=== PATIENT | female | born 1980 | race Hispanic/Latino ===

== ENCOUNTER 2020-10-28 05:49 | Inpatient (IN) | payer BC ==
[2020-10-28 06:22] LABS: Absolute Lymphocytes (CBC) 1.7 K/uL (0.7-4.9); Basophils % 1.4 % (0-1.3); Hematocrit 40.2 % (36.0-45.0); Lymphocytes % 21.1 % (15.3-44.8); MPV 9.2 fL (7.6-11.3); RBC Red Blood Cell Count 4.39 M/uL (3.86-4.86)
[2020-10-28 06:49] LABS: ALT/SGPT 26 U/L (12-78); AST/SGOT 17 U/L (15-37); Albumin 3.8 g/dL (3.4-5.0); Alkaline Phosphatase 70 U/L (45-117); BUN Blood Urea Nitrogen 12 mg/dL (7-18); Bicarbonate 23 mmol/L (21-32); Bilirubin Direct 0.1 mg/dL (0-0.2); Bilirubin Total 0.5 mg/dL (0.2-1.0); Glucose Level 99 mg/dL (74-106); Lipase 115 U/L (73-393); Potassium 3.8 mmol/L (3.5-5.1); Protein, Total 7.9 g/dL (6.4-8.2); Sodium Level 140 mmol/L (136-145)
[2020-10-28 07:35] LABS: Urine Bacteria LOADED /HPF (<20)
--- NOTE | 2020-10-28 08:23 | RAD REPORT ---
EXAM DESCRIPTION: US - Abdomen Exam Limited - 10/28/2020 6:56 am CLINICAL HISTORY: ABD PAIN COMPARISON: No comparisons FINDINGS: The gallbladder demonstrates no gallstones. No pericholecystic fluid or gallbladder wall t hickening. The common bile duct is mildly prominent measuring 7 mm. The liver demonstrates no findings of intrahepatic biliary dilatation. IMPRESSION: No gallstones are visualized. Upper limit of normal common bile duct measuring 7 mm. MR CP could be obtained for further evaluation of the biliary tree if clinically indicated.
--- NOTE | 2020-10-28 08:49 | RAD REPORT ---
EXAM DESCRIPTION: CTAbdomen Pelvis W Contrast - 10/28/2020 8:19 am CLINICAL HISTORY: Abdominal pain. ABD PAIN COMPARISON: No comparisons TECHNIQUE: Biphasic CT imaging of the abdomen and pelvis was performed with 100 ml non-ionic IV cont rast. All CT scans are performed using dose optimization technique as appropriate and may include automated exposure control or mA/KV adjustment according to patient size. FINDINGS: Linear opacities in the left lung base laterally suggest atelectasis. The liver, spleen, pancreas, adrenal glands and kidneys are within normal limits. 5 cm area of inflamed fat is seen in the right upper quadrant region suggesting an omental infarction . No bowel obstruction, free air, free fluid or abscess. The appendix is normal. No evidence of signi ficant lymphadenopathy. No suspicious bony findings. IMPRESSION: 5 cm area of inflamed fat in the right upper quadrant may represent omental infarction. Suggest followup CT abdomen in 3-6 months for surveillance purposes.
[2020-10-28] MEDS ORDERED: MORPHINE 4 MG/ML SYR ONE ×2 (08:51→11:37)
[2020-10-28] MEDS ORDERED: CEFTRIAXONE/SWI 1gm 1 GM/10 ML SYR ONE (08:52)
--- NOTE | 2020-10-28 09:10 | EDPHYS ---
Physician Documentation [facility] Name: Debby Davenport Age: 40 yrs Sex: Female : 1980 Arrival Date: 10/28/2020 Time: 05:49 Bed 6 Private MD: ED Physician Jere Thomas HPI: 10/28 06:38 This 40 yrs old Female presents to ER via Wheelchair with complaints of rn Abdominal Pain. 06:38 The patient presents with abdominal pain in the right upper quadrant. rn 07:12 Onset: The symptoms/episode began/occurred yesterday. The symptoms do not radiate. rn Associated signs and symptoms: Pertinent positives: diarrhea, Pertinent negatives: shortness of breath, vaginal discharge, vomiting. The symptoms are described as achy, crampy. Modifying factors: The symptoms are alleviated by nothing, the symptoms are aggravated by touching the area. Severity of pain: At its worst the pain was moderate in the emergency department the pain is unchanged. The patient has not experienced similar symptoms in the past. 07:13 The patient has not recently seen a physician. rn ADMITTING OFFICER: 06:07 LMP 10/28/2020 ea Historical: - Allergies: 06:05 Cipro; ea - PMHx: 06:05 None; ea - PSHx: 06:05 None; ea - Immunization history:: Adult Immunizations up to date. - Social history:: Smoking status: Patient denies any tobacco usage or history of. - Family history:: not pertinent. - Hospitalizations: : No recent hospitalization is reported. ROS: 07:13 Constitutional: Negative for fever, chills, and weight loss, Eyes: Negative for injury, rn pain, redness, and discharge, Neck: Negative for injury, pain, and swelling, Cardiovascular: Negative for chest pain, palpitations, and edema, Respiratory: Negative for shortness of breath, cough, wheezing, and pleuritic chest pain, Abdomen/GI: + right sided abd pain and diarrhea Back: Negative for injury and pain, : Negative for injury, bleeding, discharge, and swelling, MS/Extremity: Negative for injury and deformity, Skin: Negative for injury, rash, and discoloration, Neuro: Negative for headache, weakness, numbness, tingling, and seizure. Exam: 07:13 Constitutional: Overweight patient, holding right side of abdomen Head/Face: rn Normocephalic, atraumatic. Eyes: Periorbital areas with no swelling, redness, or edema. Cardiovascular: Regular rate and rhythm. No pulse deficits. Respiratory: No increased work of breathing, no retractions or nasal flaring. Abdomen/GI: soft, + RUQ and RLQ tenderness, no rebound Skin: Warm, dry with normal turgor. Normal color with no rashes, no lesions, and no evidence of cellulitis. MS/ Extremity: Pulses equal, no cyanosis. Neurovascular intact. Full, normal range of motion. Equal circumference. Neuro: Awake and alert, GCS 15 10:49 ECG was reviewed by the Attending Physician. [facility] Vital Signs: 06:01 BP 135 / 87; Pulse 76; Resp 18; Temp 98.7; Pulse Ox 97% on R/A; Weight 99.79 kg; Height ea 5 ft. 6 in. (167.64 cm); Pain 10/10; 08:40 BP 142 / 100; Pulse 74; Resp 20; Pulse Ox 97% on R/A; Pain 8/10; hb 10:00 BP 138 / 98; Pulse 67; Resp 20; Pulse Ox 97% ; sv 11:30 BP 134 / 88; Pulse 68; Resp 15; Pulse Ox 99% on R/A; hb 13:00 BP 136 / 87; Pulse 66; Resp 16; Temp 97.9; Pulse Ox 100% on R/A; hb 06:01 Body Mass Index 35.51 (99.79 kg, 167.64 cm) ea MDM: 06:32 Patient medically screened. rn 09:04 Differential diagnosis: bowel obstruction, cholecystitis, Cholelithiasis, Hepatitis, real myocardia ischemia or infarction, non-specific abd pain, pancreatitis, Perf. Gastric Ulcer, Peritonitis, Pyelonephritis, urinary tract infection. Data reviewed: vital signs, nurses notes, lab test result(s), radiologic studies. 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 Test interpretation: by ED physician or midlevel provider: ECG, plain radiologic studies. Counseling: I had a detailed discussion with the patient and/or guardian regarding: the historical points, exam findings, and any diagnostic results supporting the discharge/admit diagnosis, lab results, radiology results, the need for further work-up and treatment in the hospital. 10/28 06:10 Order name: Basic Metabolic Panel 10/28 06:10 Order name: CBC with Diff 10/28 06:10 Order name: Hepatic Function 10/28 06:10 Order name: Lipase 10/28 06:11 Order name: Basic Metabolic Panel; Complete Time: 07:17 EDOR 10/28 06:11 Order name: CBC with Automated Diff; Complete Time: 06:38 EDOR 10/28 06:11 Order name: Liver (Hepatic) Function; Complete Time: 07:17 EDOR 10/28 06:11 Order name: Lipase; Complete Time: 07:17 [facility] 10/28 06:38 Order name: Urine Microscopic Only 10/28 06:39 Order name: Urine Microscopic Only; Complete Time: 08:15 [facility] 10/28 06:59 Order name: Urine Dipstick--Ancillary (enter results); Complete Time: 10:45 ds4 10/28 07:36 Order name: Urine Culture [facility] 10/28 06:10 Order name: IV Saline Lock; Complete Time: 06:10 10/28 06:10 Order name: Labs collected and sent; Complete Time: 06:10 10/28 06:38 Order name: CT Abd/Pelvis - IV Contrast Only; Complete Time: 10:45 rn 10/28 06:38 Order name: Urine Test (obtain specimen); Complete Time: 06:56 10/28 06:40 Order name: US Abdomen Limited; Complete Time: 08:34 10/28 08:33 Order name: SARS-COV-2 RT PCR; Complete Time: 08:34 [facility] 10/28 09:06 Order name: EKG; Complete Time: 09:07 [facility] 10/28 09:06 Order name: Troponin (emerg Dept Use Only); Complete Time: 10:45 real 10/28 12:52 Order name: MRI [facility] 10/28 13:29 Order name: Urine --Ancillary (enter results) 10/28 13:38 Order name: Urine --Ancillary [facility] 10/28 06:38 Order name: Urine Dipstick-Ancillary (obtain specimen); Complete Time: 06:56 rn 10/28 09:06 Order name: EKG - Nurse/Tech; Complete Time: 10:57 [facility] EC:49 Rate is 69 beats/min. Rhythm is regular. QRS [place] is Normal. MI interval is normal. QRS real interval is normal. QT interval is normal. No Q waves. T waves are Normal. No ST changes noted. Clinical impression: Normal ECG and No evidence of ischemia. Interpreted by me. Reviewed by me. Administered Medications: 08:39 Drug: morphine 4 mg Route: IVP; Site: left forearm; hb 09:00 Follow up: Response: No adverse reaction hb 08:39 Drug: Rocephin - (cefTRIAXone) 1 grams Route: IVPB; Infused Over: 30 mins; Site: left hb forearm; 08:40 Follow up: IV Status: Completed infusion; IV Intake: 10ml hb 09:10 Follow up: Response: No adverse reaction hb 09:17 Drug: Flagyl 500 mg Volume: 100 ml; Route: IVPB; Rate: 200 ml/hr; Infused Over: 30 sr5 mins; Site: left antecubital; 09:50 Follow up: Response: No adverse reaction; IV Status: Completed infusion; IV Intake: hb 200ml 11:24 Drug: morphine 4 mg Route: IVP; Site: left antecubital; hb 12:05 Follow up: Response: No adverse reaction hb 11:58 Drug: Benadryl (diphenhydrAMINE) 25 mg Route: IVP; Site: left forearm; ss 12:35 Follow up: Response: No adverse reaction hb Disposition: 10/28/20 09:09 Hospitalization ordered by Diego Dove for Inpatient Admission. Preliminary diagnosis are Abdominal tenderness, Acute vascular disorders of intestine - omental infarction. - Bed requested for Telemetry/MedSurg (Inpatient). - Status is Inpatient Admission. hb - Condition is Stable. - Problem is new. - Symptoms have improved. Signatures: Dispatcher [employer] EDMS Bernarda Ledesma Corey, MD MD cha Nieto, Roman, MD MD rn Smirch, Shelby, RN RN ss Baxter, Heather, RN RN Sami Gruber RN RN sr5 Glenys Sanchez RN RN ea Corrections: (The following items were deleted from the chart) 07:36 06:55 Urine Dipstick-Ancillary ordered. EDMS EDMS 07:36 07:17 Urine Dipstick-Ancillary reviewed. rn EDMS 07:47 06:42 CORONAVIRUS+MR.LAB.BRZ ordered. EDMS EDMS 12:18 09:09 Hospitalization Ordered by Diego Dove DO for Inpatient Admission. Preliminary bd diagnosis is Abdominal tenderness; Acute vascular disorders of intestine - omental infarction. Bed requested for Telemetry/MedSurg (Inpatient). Status is Inpatient Admission. Condition is Stable. Problem is new. Symptoms have improved. real 13:55 12:18 10/28/2020 09:09 Hospitalization Ordered by Diego Dove DO for Inpatient hb Admission. Preliminary diagnosis is Abdominal tenderness; Acute vascular disorders of intestine - omental infarction. Bed requested for Telemetry/MedSurg (Inpatient). Status is Inpatient Admission. Condition is Stable. Problem is new. Symptoms have improved. bd
--- NOTE | 2020-10-28 09:10 | ER ---
Nurse's Notes [facility] Name: Debby Davenport Age: 40 yrs Sex: Female : 1980 Arrival Date: 10/28/2020 Time: 05:49 Bed 6 Private MD: Diagnosis: Abdominal tenderness;Acute vascular disorders of intestine-omental infarction Presentation: 10/28 06:01 Chief complaint: Patient states: Reports pain that started yesterday morning, pt ea reports she has been having diarrhea and nausea. Coronavirus screen: At this time, the client does not indicate any symptoms associated with coronavirus-19. Ebola Screen: No symptoms or risks identified at this time. Initial Sepsis Screen: Does the patient meet any 2 criteria? No. Patient's initial sepsis screen is negative. Does the patient have a suspected source of infection? No. Patient's initial sepsis screen is negative. Risk Assessment: Do you want to hurt yourself or someone else? Patient reports no desire to harm self or others. Onset of symptoms. 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 - Social history:: Smoking status: Patient denies any tobacco usage or history of. - Family history:: not pertinent. - Hospitalizations: : No recent hospitalization is reported. Screenin:04 Abuse screen: Denies threats or abuse. Nutritional screening: No deficits noted. ea Tuberculosis screening: No symptoms or risk factors identified. Fall Risk None identified. Assessment: 06:06 General: Appears in no apparent distress. Behavior is calm, cooperative, appropriate ea for age. Pain: Complains of pain in right upper quadrant. Neuro: Level of Consciousness is awake, alert, obeys commands, Oriented to person, place, time. Cardiovascular: Patient's skin is warm and dry. Respiratory: Airway is patent Respiratory effort is even, unlabored, Respiratory pattern is regular, symmetrical. GI: Abdomen is non-distended. Derm: Skin is pink, warm \T\ dry. 06:51 Reassessment: Ultrasound at bedside. ea 08:40 Reassessment: Patient appears in no apparent distress at this time. Patient and/or hb family updated on plan of care and expected duration. Pain level reassessed. Patient is alert, oriented x 3, equal unlabored respirations, skin warm/dry/pink. 09:30 Reassessment: Patient appears in no apparent distress at this time. hb 10:30 Reassessment: Patient appears in no apparent distress at this time. Patient and/or hb family updated on plan of care and expected duration. Pain level reassessed. Patient is alert, oriented x 3, equal unlabored respirations, skin warm/dry/pink. 11:25 Reassessment: Pt c/o pain /. Dr. Thomas notified repeat morphine administered as hb ordered. 11:58 Reassessment: localized redness and whelps with reported mild itching to IV site after ss morphine administration. verbal order for Benadryl 25 mg IVP given by Dr. Thomas and has been administered. Pt denies SOB. No edema noted. Pt to MRI now via wheelchair. 13:00 Reassessment: Patient appears in no apparent distress at this time. Patient and/or hb family updated on plan of care and expected duration. Pain level reassessed. Patient is alert, oriented x 3, equal unlabored respirations, skin warm/dry/pink. 13:54 Reassessment: Patient appears in no apparent distress at this time. Patient and/or hb family updated on plan of care and expected duration. Pain level reassessed. Patient is alert, oriented x 3, equal unlabored respirations, skin warm/dry/pink. Vital Signs: 06:01 BP 135 / 87; Pulse 76; Resp 18; Temp 98.7; Pulse Ox 97% on R/A; Weight 99.79 kg; Height ea 5 ft. 6 in. (167.64 cm); Pain 10/10; 08:40 BP 142 / 100; Pulse 74; Resp 20; Pulse Ox 97% on R/A; Pain 8/10; hb 10:00 BP 138 / 98; Pulse 67; Resp 20; Pulse Ox 97% ; sv 11:30 BP 134 / 88; Pulse 68; Resp 15; Pulse Ox 99% on R/A; hb 13:00 BP 136 / 87; Pulse 66; Resp 16; Temp 97.9; Pulse Ox 100% on R/A; hb 06:01 Body Mass Index 35.51 (99.79 kg, 167.64 cm) ea ED Course: 05:49 Patient arrived in ED. ag3 06:03 Triage completed. ea 06:04 Patient has correct armband on for positive identification. Bed in low position. Call ea light in reach. Side rails up X2. 06:04 Arm band placed on right wrist. Patient placed in an exam room, on a stretcher, on ea pulse oximetry. 06:05 Inserted saline lock: 22 gauge in right antecubital area, using aseptic technique. ds4 Blood collected. 06:19 Basic Metabolic Panel Sent. ds4 06:19 CBC with Diff Sent. ds4 06:19 Hepatic Function Sent. ds4 06:20 Lipase Sent. ds4 06:20 CBC with Automated Diff Sent. ds4 06:20 Basic Metabolic Panel Sent. ds4 06:20 Lipase Sent. ds4 06:20 Liver (Hepatic) Function Sent. ds4 06:32 Go Tristan MD is Attending Physician. rn 06:56 US Abdomen Limited In Process Unspecified. EDMS 07:23 Attending Physician role handed off by Go Tristan MD real 07:23 Jere Thomas MD is Attending Physician. real 08:19 CT Abd/Pelvis - IV Contrast Only In Process Unspecified. EDMS 08:20 Charla Prabhakar, MECHE is Primary Nurse. hb 08:40 Urine Microscopic Only Sent. hb 09:07 Diego Dove DO is Hospitalizing Provider. real 13:54 No provider procedures requiring assistance completed. Patient admitted, IV remains in hb place. Administered Medications: 08:39 Drug: morphine 4 mg Route: IVP; Site: left forearm; hb 09:00 Follow up: Response: No adverse reaction hb 08:39 Drug: Rocephin - (cefTRIAXone) 1 grams Route: IVPB; Infused Over: 30 mins; Site: left hb forearm; 08:40 Follow up: IV Status: Completed infusion; IV Intake: 10ml hb 09:10 Follow up: Response: No adverse reaction hb 09:17 Drug: Flagyl 500 mg Volume: 100 ml; Route: IVPB; Rate: 200 ml/hr; Infused Over: 30 sr5 mins; Site: left antecubital; 09:50 Follow up: Response: No adverse reaction; IV Status: Completed infusion; IV Intake: hb 200ml 11:24 Drug: morphine 4 mg Route: IVP; Site: left antecubital; hb 12:05 Follow up: Response: No adverse reaction hb 11:58 Drug: Benadryl (diphenhydrAMINE) 25 mg Route: IVP; Site: left forearm; ss 12:35 Follow up: Response: No adverse reaction hb Intake: 08:40 IV: 10ml; Total: 10ml. hb 09:50 IV: 200ml; Total: 210ml. hb Outcome: 09:09 Decision to Hospitalize by Provider. real 13:54 Admitted to OR accompanied by nurse, via wheelchair, room OR, then to 220. hb 13:54 Condition: stable 13:54 Instructed on the need for admit, Demonstrated understanding of instructions. 13:55 Patient left the ED. hb Signatures: Dispatcher [employer] Bonnie Deluca, RN Jere Ceja MD MD cha Nieto, Roman, MD MD rn Smirch, Shelby, RN RN ss Swanson, Donovan ds4 Charla Prabhakar RN RN Sami Ruiz, RN RN sr5 Glenys Sanchez, RN Corina Peterson ea ag3
[2020-10-28 09:20] LABS: Urine Blood 3+ (Negative); Urine Glucose NEGATIVE (Negative); Urine Protein 1+ (Negative); Urine Specific Gravity >1.030 (1.005-1.030)
[2020-10-28] MEDS ORDERED: METRONIDAZOLE 500mg IVPB 500 MG/100 ML BAG IV ONE (09:23)
--- NOTE | 2020-10-28 10:56 | P.HP ---
Certification for Inpatient Patient admitted to: Observation With expected LOS: <2 Midnights Patient will require the following post-hospital care: None Practitioner: I am a practitioner with admitting privileges, knowledge of patient current condition, hospital course, and medical plan of care. Services: Services provided to patient in accordance with Admission requirements found in Title 42 Section 412.3 of the Code of Federal Regulations Patient History Date of Service: 10/28/20 Primary Care Provider: none Reason for admission: Right upper quadrant abdominal pain History of Present Illness: 40-year-old female presented to the emergency room with right upper quadrant abdominal pain. This started yesterday morning. She rated the pain about a 10 out of 10. It was worse with movement. Better when she was at rest. It was associated with some nausea no vomiting noted. She denies any diarrhea, constipation. She denies any fever, chills or significant shortness of breath. Pain persisted. She came to the ER for further evaluation. In the ER, blood pressure stable. White count 8.0. Hemoglobin 13.5. Sodium 140, potassium 3.8. Creatinine 0.71 with a GFR greater than 90. Glucose 99. Urinalysis shows evidence of UTI. CT scan showed 5 mm inflamed fat in the right upper quadrant likely representing omental infarction. Abdominal ultrasound showed no gallstones. Common bile duct was upper limits of normal at 7 mm. The patient was given medication for pain. Patient admitted for further evaluation and treatment. 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 Psychosocial/ Personal History: Patient - Family History Family History: Reviewed- Non-Contributory - Social History Smoking Status: Light Tobacco smoker (1-9 cigarettes/day) Counseled patient to stop smoking for: less than 10 minutes Smoking therapy provided: Yes Patient receptive to therapy: Yes Alcohol use: Yes CD- Drugs: Yes Caffeine use: Yes Place of Residence: Home Review of Systems General: As per HPI Eyes: Unremarkable ENT: Unremarkable Respiratory: Unremarkable Cardiovascular: Unremarkable Gastrointestinal: Nausea, Abdominal Pain, As per HPI Genitourinary: Unremarkable Musculoskeletal: Unremarkable Integumentary: Unremarkable Neurological: Unremarkable Lymphatics: Unremarkable Physical Examination - Physical Exam General: Alert, In no apparent distress, Oriented x3, Cooperative HEENT: Atraumatic, Normocephalic, Other (Dry mucous membranes) Neck: Supple Respiratory: Clear to auscultation bilaterally, Normal air movement Cardiovascular: Normal pulses, Regular rate/rhythm Gastrointestinal: Normal bowel sounds, Soft and benign, Non-distended, No masses, No rebound, No guarding, Tenderness (Pain to the right upper quadrant noted. Abdominal striae noted ) Integumentary: No tenderness/swelling, No erythema, No warmth, No cyanosis Neurological: Normal speech, Normal strength at 5/5 x4 extr, Normal tone, Normal affect - Studies Laboratory Data (last 24 hrs) 10/28/20 06:12: WBC 8.00, Hgb 13.5, Hct 40.2, Plt Count 299 10/28/20 06:12: Sodium 140, Potassium 3.8, BUN 12, Creatinine 0.71, Glucose 99, Total Bilirubin 0.5, AST 17, ALT 26, Alkaline Phosphatase 70, Lipase 115 Assessment and Plan - Plan Impression: Right upper quadrant abdominal pain with nausea secondary to omental infarction UTI GERD Tobacco abuse Plan: Right upper quadrant abdominal pain with nausea secondary to omental infarction: Patient will be admitted for further evaluation and treatment. Case discussed with surgery. We will start IV antibiotic therapy, pain control, and IV fluids. We will keep the patient n.p.o. at this time. We will also order MRCP to rule out common bile duct dysfunction or abnormality. Anticipate improvement. If this persist patient may require surgical intervention. Await recommendations from surgery. Anticipate improvement over the next 48 hours. UTI: We will start IV antibiotic therapy. Await urine and blood culture. GERD: GERD suspected. Will start Protonix. Tobacco abuse: We will provide nicotine patch if needed. Tobacco cessation addressed in detail. Discharge Plan: Home Plan to discharge in: 48 Hours - Advance Directives Does patient have a Living Will: No Does patient have a Durable POA for Healthcare: No - Code Status/Comfort Care Code Status Assessed: Yes (full code) Time Spent Managing Pts Care (In Minutes): 55
[2020-10-28] MEDS ORDERED: DIPHENHYDRAMINE 50 MG/ML VIAL ONE (12:11)
--- NOTE | 2020-10-28 12:52 | RAD REPORT ---
EXAM DESCRIPTION: MRI - Cholangiogram - 10/28/2020 12:21 pm CLINICAL HISTORY: RUQ pain Abdominal pain COMPARISON: Abdomen Pelvis W Contrast dated 10/28/2020; Abdomen Exam Limited dated 10/28/2020 FINDINGS: Three-dimensional MRCP was performed using maximum intensity projection reconstruction on the same work station. No intrahepatic biliary tree dilatation is seen. The common bile duct is normal caliber without evide nce of retained stone, stricture or mass. The pancreatic duct is not pathologically dilated. The gallbladder is unremarkable. Limited T2 sequences through the abdomen demonstrates no bulky adenopathy, significant free fluid or abscess. IMPRESSION: Negative MR cholangiogram.
[2020-10-28] MEDS ORDERED: FENTANYL CITR 100 MCG/2 ML ONE (14:14)
[2020-10-28] MEDS ORDERED: propofoL 200 MG/20 ML VIAL IV ONE (14:15)
[2020-10-28] MEDS ORDERED: MIDAZOLAM HCL 2 MG/2 ML INJ ONE (14:15)
[2020-10-28] MEDS ORDERED: ROCURONIUM 50 MG/5 ML VIAL IV ONE (14:15)
[2020-10-28] MEDS ORDERED: dexAMETHasone 10 MG/ML VIAL ONE (14:15)
[2020-10-28] MEDS ORDERED: LIDOCAINE 2% MPF 5 ML VIAL ONE (14:15)
[2020-10-28] MEDS ORDERED: ONDANSETRON 4 MG/2 ML VIAL ONE (14:17)
[2020-10-28] MEDS ORDERED: Ringers Lactate 1,000 ML IV ONE ×2 (14:19→15:26)
--- NOTE | 2020-10-28 14:20 | PREOPCON ---
Date of Consultation: 10/28/2020 Chief Complaint: Right upper quadrant abdominal pain. History Of Present Illness: The patient is a 40-year-old female, who awoke yesterday morning with ri ght upper quadrant abdominal pain persisted all day long with associated with nausea, but no vomiting and pain is not associated with eating. No diarrhea or constipation. No blood in her stool. No dy suria or hematuria. No sore throat, runny nose, cough, headaches, or dizziness. No chest pain. She has never had pain like this. Review of Systems: Otherwise unremarkable. Past Medical History: Negative. Past Surgical History: Right hand surgery. Allergies: NO ALLERGIES. Social History: The patient does smoke and drinks occasionally. Family History: Significant for kidney disease, diabetes. Physical Examination: Vital Signs: Stable. She is afebrile. General: She is awake, alert, and oriented x3. Head and Neck: Cranial nerves 2 through 12 are grossly within normal limits. No neck masses. No JV D. Throat clear. Neck is supple. Chest: Clear. Heart: S1, S2. Abdomen: Soft, nondistended. Positive bowel sounds. Positive right upper quadrant tenderness with minimal rebound. No rigidity or guarding. Extremities: Adequately perfused. Nontender. Neuro: Nonfocal. Laboratory Data: White count is within normal limits. Electrolytes reviewed, essentially within nor mal limits. CT of the abdomen and ultrasound reviewed. She has a 5 cm infarcted omentum in the righ t upper quadrant. Also, she has a dilated common bile duct at 7 mm and recommendation is to get an M SHRINKING MACHINE OPERATOR to rule out any common bile duct pathology. Assessment: Right upper quadrant abdominal pain likely secondary to infarcted omentum. Recommendations: Await MRCP. If negative, we will proceed with diagnostic resection of th e infarcted omentum. The patient understands risks, benefits, and alternatives and agrees to proceed . /MODL Voice ID: [id number] Report ID: [id number]
[2020-10-28] MEDS ORDERED: CEFOXITIN/SWI 1gm 1 GM/10 ML SYR ONE (14:30)
[2020-10-28] MEDS ORDERED: EPHEDRINE SULF 50 MG/ML VIAL ONE (15:05)
[2020-10-28] MEDS ORDERED: GLYCOPYRROLATE 0.2 MG/ML SYR ONE (15:17)
--- NOTE | 2020-10-28 15:17 | P.OP ---
Scheduling Assistant: Abril CAMP Preoperative diagnosis: Abdominal Pain, Infarcted Omentum Postoperative diagnosis: Same, Endometriosis Primary procedure: Diag Lap, Partial Omentectomy, Biopsy Peritoneal Nodule Anesthesia: General Estimated blood loss: min Specimen: Omentum, Peritoneal Nodule Findings: as above Complications: None Transferred to: Recovery Room Condition: Good
[2020-10-28] MEDS ORDERED: SODIUM CHLORIDE 0.9% 10ML INJ IV PRN (15:21)
[2020-10-28] MEDS ORDERED: ACETAMINOPHEN 500 MG TAB PO PRN (15:21)
[2020-10-28] MEDS: PANTOPRAZOLE 40 MG INJ IVP SCH (15:21)
[2020-10-28] MEDS ORDERED: ONDANSETRON 4 MG/2 ML VIAL IV PRN (15:21)
[2020-10-28] MEDS: NA CHLORIDE 0.9% 1,000 ML IV SCH ×2 (15:21→19:58)
[2020-10-28] MEDS ORDERED: ACETAMINOPHEN 650MG/RECT SUPP PR PRN (15:21)
[2020-10-28] MEDS ORDERED: NEOSTIGMINE 1 MG/ML -5 ML ONE (15:22)
[2020-10-28] MEDS ORDERED: KETOROLAC 30 MG/ML INJ ONE (15:25)
[2020-10-28] MEDS: HYDROMORPHONE HCL 1 MG/ML INJ ONE ×2 (15:30→15:35)
[2020-10-28] MEDS: HYDROMORPHONE HCL 2 MG/ML inj ONE ×2 (15:55→16:01)
[2020-10-28] MEDS: NICOTINE 21 MG/PAT TD SCH (16:00)
--- NOTE | 2020-10-28 17:41 | OP ---
Date of Procedure: 10/28/2020 Surgeon: Parish Schilling MD Hydroelectric Operator: CONRADO Felipe. Preoperative Diagnosis: Abdominal pain and infarcted omentum. Postoperative Diagnosis: Abdominal pain and infarcted omentum with peritoneal nodule consistent with endometriosis. Procedures Performed: Diagnostic laparoscopy, partial omentectomy, and biopsy of peritoneal nodule. Estimated Blood Loss: Minimal. Specimen: Infarcted omentum and peritoneal nodule. Findings: As above. Anesthesia: General. Complications: None. Disposition: The patient tolerated the procedure in stable condition and taken to Recovery in good g eneral condition. Procedure In Detail: The patient was brought to the OR and placed in supine position. General began . The patient was prepped and draped in the usual sterile fashion. Marcaine 0.5% was infiltrated lo sudheer. A 15-blade was used to make a 1 cm supraumbilical midline incision. Subcutaneous tissue was divided. Fascia was identified and divided. #1 Vicryl stay suture was placed. Peritoneal cavity wa s entered with sharp and blunt dissection. A 12 mm trocar was placed into the peritoneal cavity unde r direct vision. Pneumoperitoneum was established. A 5 trocar was placed in the epigastrium just to the right of midline and 1 in the right mid abdomen. Laparoscopy revealed infarcted omentum in the right upper quadrant with attachment to the peritoneal surface, which was taken down with blunt disse ction. Approximately a 2-inch portion of the omentum was then excised with LigaSure. Bleeding was e asily controlled. This was retrieved through the umbilicus via an EndoCatch bag. Then, a diagnostic laparoscopy revealed peritoneal nodules in the left upper quadrant and the diaphragm where the heart is and on the right upper quadrant near where the omentum was and in the right pelvic region. These were black nodules consistent with most likely endometriosis. A cautery was used to cauterize the a kim around the right upper quadrant nodule and the nodule was biopsied in the standard fashion and se nt to Pathology as specimen. That area was examined and bleeding was controlled with cautery. Subse quently, there was no other evidence of significant disease identified and then all trocars were rajesh shasha under direct vision. Stay sutures were tied to each other across the fascial defect. Subcutaneo us wounds were irrigated. Bleeding was controlled with cautery and 3-0 chromic used to approximate t he subcutaneous tissue and close the skin. Sterile dressing was applied. The patient was awakened a nd taken to Recovery in good general condition. /MODL Voice ID: [id number] Report ID: [id number]
[2020-10-28 17:53] VITALS: BMI 35.5
[2020-10-28] MEDS ORDERED: CEFOXITIN SODIUM 1 GM/VIAL IVPB SCH (18:00)
[2020-10-28] MEDS: HYDROMORPHONE HCL 1 MG/ML INJ IV PRN (19:57)
[2020-10-28 20:10] LABS: Urine Appearance CLOUDY (Clear); Urine Blood 3+ (Negative); Urine Glucose NEGATIVE (Negative); Urine Protein 1+ (Negative); Urine Specific Gravity >=1.030 (1.005-1.030); Urine Urobilinogen 0.2 mg/dL (0.2-1.0); Urine pH 5.5 (5.0-7.0)
[2020-10-28 20:49] LABS: Urine Color YELLOW (Yellow); Urine Microscopic Reflex ORDER UMIC
[2020-10-28] MEDS ORDERED: CEFOXITIN SODIUM 1 GM/VIAL ONE ×2 (20:55→20:56)
[2020-10-28 21:05] LABS: Urine Bilirubin NEGATIVE (Negataive)
[2020-10-28] MEDS: CEFOXITIN/SWI 1gm 1 GM/10 ML SYR IVP SCH (21:09)
[2020-10-28 21:11] LABS: Urine Bacteria 20-50 /HPF (<20); Urine Mucus 1+ /HPF (NONE SEEN)
[2020-10-29] MEDS: HYDROMORPHONE HCL 1 MG/ML INJ IV PRN ×3 (00:26→12:43)
[2020-10-29] MEDS: CEFOXITIN/SWI 1gm 1 GM/10 ML SYR IVP SCH ×2 (00:27→05:24)
[2020-10-29] MEDS: NA CHLORIDE 0.9% 1,000 ML IV SCH ×2 (01:00→05:33)
[2020-10-29] MEDS: HYDROCODONE/APAP 7.5/325 MG TAB PO PRN ×2 (05:33→10:53)
[2020-10-29 06:29] LABS: Absolute Lymphocytes (CBC) 0.9 K/uL (0.7-4.9); Basophils % 0.3 % (0-1.3); Hematocrit 36.3 % (36.0-45.0); Lymphocytes % 6.3 % (15.3-44.8); MPV 9.4 fL (7.6-11.3); RBC Red Blood Cell Count 3.96 M/uL (3.86-4.86)
[2020-10-29 06:41] LABS: Magnesium 1.8 mg/dL (1.8-2.4); Phosphorus 2.5 mg/dL (2.5-4.9); Potassium 4.1 mmol/L (3.5-5.1); Thyroid Stimulating Hormone 0.15 uIU/mL (0.360-3.740)
--- NOTE | 2020-10-29 06:53 | EKG ---
Test Date: 2020-10-28 Test Time: 10:58:08 [place] Laborer: MICHELLE MEASUREMENT RESULTS: Intervals: Rate: 66 DE: 154 QRSD: 78 QT: 434 QTc: 454 [place]: P: 51 DE: 154 QRS: 19 T: 35 INTERPRETIVE STATEMENTS: Normal sinus rhythm Normal ECG No previous ECG available for comparison Electronically Signed On 10-29-20 06:51:36 CDT by Kevin Rubin
[2020-10-29] MEDS: PANTOPRAZOLE 40 MG INJ IVP SCH (08:04)
--- NOTE | 2020-10-29 08:35 | P.DS ---
Admission Date: 10/28/20 Discharge Date: 10/29/20 Primary Care Provider: none Disposition: ROUTINE DISCHARGE Discharge Condition: GOOD Reason for Admission: Right upper quadrant abdominal pain Consultations: Surgery-Dr. Stone Procedures: COVID: Negative ABUS: COMPARISON: No comparisons FINDINGS: The gallbladder demonstrates no gallstones. No pericholecystic fluid or gallbladder wall thickening. The common bile duct is mildly prominent measuring 7 mm. The liver demonstrates no findings of intrahepatic biliary dilatation. IMPRESSION: No gallstones are visualized. Upper limit of normal common bile duct measuring 7 mm. MRCP could be obtained for further evaluation of the biliary tree if clinically indicated. MRCP: COMPARISON: Abdomen Pelvis W Contrast dated 10/28/2020; Abdomen Exam Limited dated 10/28/2020 FINDINGS: Three-dimensional MRCP was performed using maximum intensity projection reconstruction on the same work station. No intrahepatic biliary tree dilatation is seen. The common bile duct is normal caliber without evidence of retained stone, stricture or mass. The pancreatic duct is not pathologically dilated. The gallbladder is unremarkable. Limited T2 sequences through the abdomen demonstrates no bulky adenopathy, significant free fluid or abscess. IMPRESSION: Negative MR cholangiogram. CT Scan: TECHNIQUE: Biphasic CT imaging of the abdomen and pelvis was performed with 100 ml non-ionic IV contrast. All CT scans are performed using dose optimization technique as appropriate and may include automated exposure control or mA/KV adjustment according to patient size. FINDINGS: Linear opacities in the left lung base laterally suggest atelectasis. The liver, spleen, pancreas, adrenal glands and kidneys are within normal limits. 5 cm area of inflamed fat is seen in the right upper quadrant region suggesting an omental infarction. No bowel obstruction, free air, free fluid or abscess. The appendix is normal. No evidence of significant lymphadenopathy. No suspicious bony findings. IMPRESSION: 5 cm area of inflamed fat in the right upper quadrant may represent omental infarction. Suggest followup CT abdomen in 3-6 months for surveillance purposes. Surgery: Date of Procedure: 10/28/2020 Surgeon: Parish Schilling MD Supervisor Sawmill: CONRADO Felipe. Preoperative Diagnosis: Abdominal pain and infarcted omentum. Postoperative Diagnosis: Abdominal pain and infarcted omentum with peritoneal nodule consistent with endometriosis. Procedures Performed: Diagnostic laparoscopy, partial omentectomy, and biopsy of peritoneal nodule. Estimated Blood Loss: Minimal. Specimen: Infarcted omentum and peritoneal nodule. Findings: As above. Anesthesia: General. Complications: None. Medical problem list: Right upper quadrant abdominal pain with nausea secondary to omental infarction status post diagnostic laparoscopy, partial omentectomy and biopsy of peritoneal nodule UTI GERD Tobacco abuse Brief History of Present Illness: 40-year-old female presented to the emergency room with right upper quadrant abdominal pain. This started yesterday morning. She rated the pain about a 10 out of 10. It was worse with movement. Better when she was at rest. It was associated with some nausea no vomiting noted. She denies any diarrhea, constipation. She denies any fever, chills or significant shortness of breath. Pain persisted. She came to the ER for further evaluation. In the ER, blood pressure stable. White count 8.0. Hemoglobin 13.5. Sodium 140, potassium 3.8. Creatinine 0.71 with a GFR greater than 90. Glucose 99. Urinalysis shows evidence of UTI. CT scan showed 5 mm inflamed fat in the right upper quadrant likely representing omental infarction. Abdominal ultrasound showed no gallstones. Common bile duct was upper limits of normal at 7 mm. The patient was given medication for pain. Patient admitted for further evaluation and treatment. Hospital Course: Patient presented with right upper quadrant abdominal pain and nausea. Patient found to have omental infarction. Patient was seen and evaluated by surgery. Surgical intervention was required. Diagnostic laparoscopy, partial omentectomy, and biopsy of peritoneal nodule was performed. Patient tolerated procedure well. Patient has done well postsurgically. Patient able to tolerate her diet. No pain noted at discharge. Surgery suspects underlying endometriosis. Biopsy pending at discharge. Recommend no heavy lifting, pushing or pulling. Recommend follow-up with surgery in 1 week to follow-up his hospitalization. Will recommend patient to see gynecology as an outpatient to follow-up this hospitalization and to further address especially if biopsy comes back positive for endometriosis. Patient found to have a UTI as well. Urine culture shows gram-negative rods. At discharge patient will be sent home with Bactrim DS 1 pill twice daily for 7 days. Probiotics will also be provided. UTI prevention provided. Recommend follow-up with PCP to follow-up urine culture results. Patient with tobacco abuse. Tobacco cessation education provided. Will provide nicotine patch to help with cessation. Vital Signs/Physical Exam: Temp Pulse Resp BP Pulse Ox 98.3 F 75 19 111/61 96 04/01/21 04:00 10/29/20 04:00 10/29/20 06:33 10/29/20 04:00 10/29/20 06:33 General: Alert, In no apparent distress, Oriented x3, Cooperative HEENT: Atraumatic Neck: Supple Respiratory: Clear to auscultation bilaterally, Normal air movement Cardiovascular: Normal pulses, Regular rate/rhythm Gastrointestinal: Normal bowel sounds, Non-distended, Other (Postsurgical changes noted. Patient without pain.) Integumentary: No tenderness/swelling Neurological: Normal speech, Normal strength at 5/5 x4 extr, Normal tone, Normal affect Laboratory Data at Discharge: WBC 13.60 K/uL (4.3-10.9) H D 10/29/20 06:04 Hgb 12.0 g/dL (12.0-15.0) 10/29/20 06:04 Hct 36.3 % (36.0-45.0) 10/29/20 06:04 Plt Count 281 K/uL (152-406) 10/29/20 06:04 Sodium 139 mmol/L (136-145) 10/29/20 06:04 Potassium 4.1 mmol/L (3.5-5.1) 10/29/20 06:04 BUN 8 mg/dL (7-18) 10/29/20 06:04 Creatinine 0.83 mg/dL (0.55-1.3) 10/29/20 06:04 Glucose 135 mg/dL (74-106) H 10/29/20 06:04 Phosphorus 2.5 mg/dL (2.5-4.9) 10/29/20 06:04 Magnesium 1.8 mg/dL (1.8-2.4) 10/29/20 06:04 Total Bilirubin 0.5 mg/dL (0.2-1.0) 10/28/20 06:12 AST 17 U/L (15-37) 10/28/20 06:12 ALT 26 U/L (12-78) 10/28/20 06:12 Alkaline Phosphatase 70 U/L (45-117) 10/28/20 06:12 Lipase 115 U/L (73-393) 10/28/20 06:12 Home Medications: Lactobacillus Acidophilus [Acidophilus Lactobacilli] 1 each PO TID #30 capsule 10/29/20 Nicotine [Nicoderm*] 21 mg TD DAILY #30 patch.td24 10/29/20 Sulfamethoxazole/Trimethoprim [Bactrim Ds Tablet] 1 each PO BID #14 tablet 10/29/20 New Medications: Lactobacillus Acidophilus [Acidophilus Lactobacilli] 1 each PO TID #30 capsule Sulfamethoxazole/Trimethoprim [Bactrim Ds Tablet] 1 each PO BID #14 tablet Nicotine [Nicoderm*] 21 mg TD DAILY #30 patch.td24 Physician Discharge Instructions: Patient presented with right upper quadrant abdominal pain and nausea. Patient found to have omental infarction. Patient was seen and evaluated by surgery. Surgical intervention was required. Diagnostic laparoscopy, partial omentectomy, and biopsy of peritoneal nodule was performed. Patient tolerated procedure well. Patient has done well postsurgically. Patient able to tolerate her diet. No pain noted at discharge. Surgery suspects underlying endometriosis. Biopsy pending at discharge. Recommend no heavy lifting, pushing or pulling. Recommend follow-up with surgery in 1 week to follow-up his hospitalization. Will recommend patient to see gynecology as an outpatient to follow-up this hospitalization and to further address especially if biopsy comes back positive for endometriosis. Patient found to have a UTI as well. Urine culture shows gram-negative rods. At discharge patient will be sent home with Bactrim DS 1 pill twice daily for 7 days. Probiotics will also be provided. UTI prevention provided. Recommend follow-up with PCP to follow-up urine culture results. Patient with tobacco abuse. Tobacco cessation education provided. Will provide nicotine patch to help with cessation. Diet: AHA Activity: No lifting more than 10 lbs Followup: Unknown,U [Primary Care Provider] - Time spent managing pt's care (in minutes): 55
[2020-10-29] MEDS ORDERED: MAGNESIUM SULFATE 1 gm IVPB 1 GM/100 ML BAG IV ONE (09:00)
[2020-10-29] MEDS: NICOTINE 21 MG/PAT TD SCH (09:00)
[2020-10-29] MEDS ORDERED: ENOXAPARIN 40 MG/0.4 ML SQ SCH (09:00)
[2020-10-29] MEDS ORDERED: THIAMINE 200 MG/2 ML INJ IVP SCH (09:00)
[2020-10-29 10:02] LABS: Blood Morphology Comment NOT SEEN (NOT SEEN); Platelet Estimate ADEQ; White Blood Cell Scan OK (OK)
[2020-10-29 10:20] VITALS: O2SAT 92
--- NOTE | 2020-10-29 12:33 | PN ---
Date of Progress Note: 10/29/2020 Subjective: The patient is awake, alert, no complaint Objective: Vital Signs: Stable, afebrile. Abdomen: Benign. Laboratory Data: Reviewed. Pathology is pending. Assessment: Status post diagnostic lap, resection of infarcted omentum, biopsy of peritoneal nodules , most likely endometriosis. Recommendations: The patient cleared for discharge from surgical standpoint. Pain medicine as order ed. Follow with me in 1 week. She needs to follow up with Parts Representative as an outpatient. Plan of care discu ssed with the patient and Dr. Dove. /FATEMEH Voice ID: [id number] Report ID: [id number]
[2020-10-29 13:39] VITALS: BP 125/65; TEMP 98.3
== END 2020-10-29 12:48 | disposition home or self-care (01) | DRG 357 ==
LOC: ER 05:49 → ERHOLD 10:56 → 2ND 15:29 → OBSVTOIN 16:08
PROVIDERS: ADMIT Family Medicine; ATTEND Family Medicine
PROC: 0DBW4ZX Excision of Peritoneum, Percutaneous Endoscopic Approach, Diagnostic (ICD-10-PCS; 2020-10-28)
PROC: 0DBU4ZZ Excision of Omentum, Percutaneous Endoscopic Approach (ICD-10-PCS; principal; 2020-10-28 14:00)
DX: K55.069 Acute infarction of intestine, part and extent unspecified (principal); N39.0 Urinary tract infection, site not specified; K21.9 Gastro-esophageal reflux disease without esophagitis; F17.210 Nicotine dependence, cigarettes, uncomplicated; N80.9 Endometriosis, unspecified; Z88.1 Allergy status to other antibiotic agents; Z79.899 Other long term (current) drug therapy; Z20.822 Contact with and (suspected) exposure to COVID-19
CPT/HCPCS: 36415; 74177; 74181; 76705; 80048; 80076; 81003; 81015; 81025; 83690; 83735; 84100; 84439; 84443; 84484; 85025; 87040; 87077; 87086; 87088; 87186; 88305; 93005; 94010; 99285; C9113; G0378; J0694; J0696; J1100; J1170; J1200; J1650; J2250; J2405; J2704; J2710; J3010; J3411; J3475; J7030; J7120; Q9967; U0003

== ENCOUNTER 2020-12-15 06:22 | Day surgery (SDC) | payer BC ==
[2020-12-10 10:08] LABS: Urine Appearance CLOUDY (Clear); Urine Bilirubin NEGATIVE (Negataive); Urine Blood NEGATIVE (Negative); Urine Color YELLOW (Yellow); Urine Glucose NEGATIVE (Negative); Urine Protein TRACE (Negative); Urine Specific Gravity 1.025 (1.005-1.030); Urine Urobilinogen 0.2 mg/dL (0.2-1.0)
[2020-12-10 10:14] LABS: Absolute Lymphocytes (CBC) 1.6 K/uL (0.7-4.9); Basophils % 0.8 % (0-1.3); Hematocrit 41.7 % (36.0-45.0); Lymphocytes % 19.3 % (15.3-44.8); RBC Red Blood Cell Count 4.53 M/uL (3.86-4.86)
[2020-12-10 10:33] LABS: Urine Bacteria >50 /HPF (<20); Urine Microscopic Reflex ORDER UMIC; Urine RBC <5 /HPF (NONE SEEN)
[2020-12-15] MEDS ORDERED: Ringers Lactate 1,000 ML IV ONE ×2 (07:12→08:55)
[2020-12-15] MEDS ORDERED: propofoL 200 MG/20 ML VIAL IV ONE (07:18)
[2020-12-15] MEDS ORDERED: ROCURONIUM 50 MG/5 ML VIAL IV ONE (07:19)
[2020-12-15] MEDS ORDERED: ONDANSETRON 4 MG/2 ML VIAL ONE (07:19)
[2020-12-15] MEDS ORDERED: FENTANYL CITR 250 MCG/5 ML ONE (07:19)
[2020-12-15] MEDS ORDERED: MIDAZOLAM HCL 2 MG/2 ML INJ ONE (07:19)
[2020-12-15] MEDS ORDERED: LIDOCAINE 2% MPF 5 ML VIAL ONE (07:19)
[2020-12-15] MEDS ORDERED: dexAMETHasone 10 MG/ML VIAL ONE (07:19)
[2020-12-15 07:24] LABS: Specific Gravity 1.025 (1.005-1.030)
[2020-12-15] MEDS ORDERED: BUPIVACAINE 0.25% PF 30 ML VIAL ONE (07:42)
[2020-12-15] MEDS: CEFAZOLIN/SWI 2gm 2 GM/20 ML SYR ONE ×2 (07:46→07:55)
[2020-12-15] MEDS: CEFAZOLIN/SWI 1gm 1 GM/10 ML SYR ONE ×2 (07:46→07:55)
[2020-12-15] MEDS ORDERED: VECURONIUM 10 MG/VIAL IV ONE (08:46)
[2020-12-15] MEDS ORDERED: NS 0.9% VIAL 10 ML ONE (08:47)
[2020-12-15] MEDS ORDERED: GLYCOPYRROLATE 0.2 MG/ML SYR ONE ×2 (09:27→10:53)
[2020-12-15] MEDS ORDERED: KETOROLAC 30 MG/ML INJ ONE (10:39)
[2020-12-15] MEDS ORDERED: NEOSTIGMINE 1 MG/ML -5 ML ONE (10:54)
[2020-12-15] MEDS ORDERED: MORPHINE 10 MG/ML VIAL ONE (10:57)
[2020-12-15] MEDS: FENTANYL CITR 100 MCG/2 ML ONE ×3 (11:12→11:30)
[2020-12-15] MEDS: MEPERIDINE HCL 25 MG/ML SYR ONE ×2 (11:35→11:46)
--- NOTE | 2020-12-15 12:14 | CON ---
Date of Consultation: 12/15/2020 Reason For Consultation: The patient has endometriosis in the upper abdomen as well as pelvis and I was consulted on the upper abdomen. History Of Present Illness: The patient is a 40-year-old female, who underwent a laparoscopic cholec ystectomy and found to have endometriosis at that time. Pictures were taken and I referred the patie nt postoperatively to Dr. Gorman who evaluated the patient and is scheduled the patient for an endo metrial ablation, fulguration, excision as needed. She consulted me on evaluation of the upper abdom en and endometriosis. The patient had several spots on the back and care was taken during procedure to make sure there were no lesions near the phrenic neurovascular bundle and there was not, and Dr. Saw rothman fulgurated the endometrial lesions in the upper abdomen. The patient tolerated the procedure in stable condition and Dr. Gorman continued with rest of the procedure in the pelvis. VAL/FATEMEH Voice ID: [id number] Report ID: [id number]
[2020-12-15] MEDS ORDERED: MEPERIDINE HCL 25 MG/ML SYR ONE (12:15)
[2020-12-15] MEDS ORDERED: HYDROCODONE/APAP 5/325 MG TAB ONE (13:29)
[2020-12-15] MEDS ORDERED: DIPHENHYDRAMINE 25 MG TAB/CAP ONE (13:30)
[2020-12-15 18:00] VITALS: BP 153/87; TEMP 98.2; O2SAT 99
--- NOTE | 2020-12-15 22:35 | OP ---
Date of Procedure: 12/15/2020 Surgeon: Dolly Gorman MD Occupational Health Nursing Director: Amparo Wright. Preoperative Diagnoses: Menorrhagia, dysmenorrhea, pelvic pain, and endometriosis. Postoperative Diagnoses: Menorrhagia, dysmenorrhea, pelvic pain, and endometriosis, endometriosis im plant in the left lateral wall, right lateral wall, posterior broad ligament, anterior abdominal wall and the right lower quadrant, and diaphragmatic endometriosis. Procedures Performed: 1.Diagnostic hysteroscopy, endometrial ablation with HTD very complex due to a patulous cervix, whic h needed a cerclage stitch, which was later removed after the ablation. 2.Diagnostic laparoscopy, bilateral salpingectomy. 3.Endometriosis fulguration on the diaphragmatic lesions x2. 4.Endometriosis excision from the left lateral wall posterior broad ligament and uterosacral and rig ht lateral wall and uterosacral, left ovariolysis. Anesthesia: General endotracheal. Intraoperative Consultation: Parish Schilling MD. Specimens: Left lateral wall posterior broad ligament, uterosacral deep infiltrating endometriosis, right lateral wall uterosacral superficial endometriosis, anterior abdominal wall superficial endomet riosis, dark lesion possibly end up, those were all the specimens and bilateral tubes. Complications: No complications. Drains: No drains. Condition: Stable. Findings: Endometriosis implants on the diaphragm, 1 right under the cardiac area superficial and fu lgurated completely. The second 1 on the diaphragm immediately lateral to the falciform on the right side, the right hemidiaphragm. This was also cauterized completely. There were several small impla nts. On the left side where the implants were, it was at least 3 to 4 cm away from the phrenic neuro vascular bundle. No evidence of any damage to it. No evidence of any cardiac arrhythmia while using electrical current in the area. Endometriosis implants in the left lateral wall between the broad ligament, uterine vessels, and uret er. That is where the deepest implants were. Then superficial implant extended onto the uterosacral and all these implants were dissected en bloc and removed until all normal tissue was seen. The ameena rine vessel was completely exposed, and the ureter was identified and dissected and kept safe lateral ly. The peritoneal stripping was done on the right side taking it from the medial aspect of the posterior broad ligament onto the uterosacral and slightly onto the posterior vaginal wall. The anterior abdo yasmin wall right lower quadrant lesion was removed. This was suspicious lesion not as classic as the others. Both tubes were removed. Both ovaries appeared to be unremarkable. The endometrial ablation was per formed with significant problems. This will be discussed below. Cavity length 5 cm, with 4.5, power 124 watson and time setting 1 minute and 51 seconds. After the ablation, hysteroscopy was performed to see the ablation effect and there was an excellent global endometrial ablation effect inside the entire cavity. Indications: The patient is a 40-year-old referred to me from Dr. Schilling as she had an urgent surgery from her ER visit where she went due to acute right upper quadrant pain at the time of onset of her period two months ago. She was found to have some suspicious necrotic tissue on the omentum and diag nostic laparoscopy was performed. This was found to be related to endometriosis, which was on the di aphragm and the anterior abdominal wall in the right upper quadrant. Two implants were fulgurated an d removed. There were 2 other implants that were still present. Pictures were taken and patient ref erred to me. On discussion of her symptoms, menorrhagia and dysmenorrhea with pelvic pain were all s ignificant symptoms for this patient custodial and progressively worsening. So, she had a transvaginal ultrasound, which showed endometrial lining to be mostly unremarkable and no endometriosis chocolate cyst seen. So, sampled the patient's endometrial lining in the office and there was no atypia or malignancy. So, she was given the option for treatment with an ablation for her bleeding and endometriosis excision for her implants. Pelvic pathology with endometriosis was al so highly suspected, and this was discussed with the patient. The alternative was to do a hysterecto my with removal of endometriosis and the patient chose to have option A, and she also was consented f or bilateral tubal removal both due to the reasons of pain as well as due to the reason that since sh e is having an ablation, she cannot have any further chance of future fertility, which would be harmf ul if there was implantation due to the ablation effect. Procedure In Detail: She was consented and brought to the OR. 3 g of Ancef were given preop, taken back to OR, placed in supine fashion on the operating table. General anesthesia was given. She was placed in dorsal lithotomy position. Pelvic exam was performed and uterus was found to be slightly r etroflexed, slightly less mobile, but no significant endometriosis palpable and the posterior cul-de- sac. Abdomen, vulva, vagina and perineum were prepped and draped in a sterile fashion. After the patient was completely relaxed, then speculum was placed to expose the cervix. Anterior lip was grasped with 2 Allis clamps. Diagnostic SlimLine hysteroscope was used to measure the cervical canal at 4 cm and the entire uterine canal at 9.5 cm under direct measurement with the scope. Then, the cervix was di lated slightly to 18-Danish. However, when I attempted to place the NovaSure device, this would not insert into the uterine cavity due to also the fact that there is a slightly retroflexion in the cavi ty, so it had to be dilated to 22-Danish. The cervix and external os were extremely patulous. So, Allis clamp was placed here to tighten the c ervix and avoid a leak. Once the device was placed, the width was 4.5 cm, and all these were input i nto the calculated endometrial canal at the 5 cm and 4.6 measured into the ablation genera tor, and then the device was taken, primed, inserted and deployed. However, on occlusion of the cerv ical os, there was difficulty in passing the cavity integrity test. There was no evidence of any alyssa k. There was small evidence of leak by the bubbly noise that the gas makes violated escaping through the external os. So, the Allis clamps were placed on the side to prevent this but due to the patulo us cervix, there was no good occlusion. Then put a cerclage stitch with 0 Vicryl suture all around a nd tied it. Then, still put an Allis clamp in the back part of the canal while the device was insert ed and deployed. This did not allow the test to pass either, so the gas that was attached to the gen erator was removed and a new cylinder placed. Then, the cavity integrity test was passed without any problems. Then the ablation was done at 124 watson for 1 minute and 51 seconds. After the machine w as shut off, it was un-deployed in the usual fashion and removed, scope introduced and checked. No e vidence of any perforation even in between the difficulties with passing the scope, hysteroscopy was performed to ensure that there was no perforation and there was not. Once the ablation was done, a diagnostic VCare was introduced into the uterus. This area was draped and went into the laparoscopic part of the case. About 10 mm supraumbilical incision was made in the midline with the knife after injecting with 0.25% Marcaine. Then, fascia was incised, tagged with 0 Vicryl sutures. Peritoneum was entered sharply. S-retractors were placed. Mariam was introduced. Site of entry was checked, unremarkable after ins ufflating the peritoneal cavity adequately. Then, the patient was placed in a reverse Trendelenburg with the head up to get to the lesions that were operated on before. They appeared to be completely excised. Then, the lesion in the right hemidiaphragm was identified and dictated in the findings and under the cardiac window on the diaphragm on the left side. The phrenic nerve and neurovascular bun dle were identified and this was at least 3 to 4 cm away. So, a 5 mm left upper quadrant port was pl aced, left lower quadrant port was placed, and a suprapubic, all sites were placed injecting Marcaine at fascia and skin. Then, once all the ports were placed, then took bipolar [place] tip and suctio n device to the level of the implant under the cardiac silhouette. This was picked up carefully and fulgurated till there was no endometriosis left, and there was another lesion immediately inferior an d left lateral to it, which was also fulgurated. On the right side off the hemidiaphragm, then went on to hold onto the implants and then fulguration was performed adequately. Once this was done, the upper abdominal endometriosis was treated appropriately. Then, the omentum was checked. There was n o evidence of any implants. Appendix was checked and there were no evidence of any implants. Then, turned the attention to the pelvis. Salpingectomy was performed with the help of LigaSure. Then, th e implants in the posterior lateral wall of the left sidewall were seen. Left ovary was adhered to t he implants, and this was taken down, all the adhesions were taken down sharply. Cautery was used ap propriately for bleeding area. Once the ovary was released, this was held with a grasper to give tra ction to the left lateral aspect as I was dissecting the left lateral wall. First, the obliterated u mbilical ligament was identified, then the ureter was identified at the pelvic brim and followed to t he ureteric tunnel. Uterosacral ligament was identified and the uterine vessels were identified infe riorly. Once this was done, then went on to open the peritoneum lateral to the implants circumferent ially marking the circumference of the peritoneum to be excised with a monopolar needle and bipolar L igaSure. Once all these were done, then the implants and the underlying adhesions were dissected efrem y from the underlying tissues till normal fat and tissues were seen without evidence of any scarring. The entire implants were shaved off from the posterior broad ligament, lateral pelvic wall fat, ameena rosacral ligament and the uterine vessels. Once all this was stripped and the deep implants were all removed, then attention was placed in the anterior cul-de-sac. Then, the stripping of the peritoneu m on the right lateral aspect was started, started laterally and peeled it off medially, wide at leas t 5 x 5 cm area was stripped. The ureter was safe. Vessels were safe and no part of the uterosacral was removed. An anterior right lower quadrant abdominal wall suspected implant was present and this was excised with the help of the LigaSure. All the areas were hemostatic. Both ureters had normal peristalsis without evidence of any injury. Then, all the trocars were removed under direct vision a nd injected with 0.25% Marcaine. Fascia and skin trocars were pulled out. Specimen of the large imp lant was brought out through the umbilical port and thorough irrigation and suction were performed. The patient was recovered from anesthesia and taken to PACU in stable condition. EBL was minimal. T he patient tolerated the procedure well. She will follow up with me in 1 week. Findings discussed w ith the . Instrument, needle and sponge counts correct. SK/MODL Voice ID: [id number] Report ID: [id number]
== END 2020-12-15 14:00 | disposition home or self-care (01) ==
LOC: OR 06:22
PROVIDERS: ATTEND Obstetrics & Gynecology
PROC: 0U5B8ZZ Destruction of Endometrium, Via Natural or Artificial Opening Endoscopic (ICD-10-PCS; 2020-12-15)
PROC: 0DBW4ZZ Excision of Peritoneum, Percutaneous Endoscopic Approach (ICD-10-PCS; 2020-12-15)
PROC: 0UB44ZZ Excision of Uterine Supporting Structure, Percutaneous Endoscopic Approach (ICD-10-PCS; 2020-12-15)
PROC: 0UT74ZZ Resection of Bilateral Fallopian Tubes, Percutaneous Endoscopic Approach (ICD-10-PCS; principal; 2020-12-15 07:30)
DX: N92.0 Excessive and frequent menstruation with regular cycle (principal); N94.6 Dysmenorrhea, unspecified; N80.3 Endometriosis of pelvic peritoneum; Z20.822 Contact with and (suspected) exposure to COVID-19
CPT/HCPCS: 87088; 85025; 87086; 36415; 86900; 86850; 81025; 86901; 88302; 88305; 87077; 87186; 58661; 58353; 58662; U0002; J2704; J2250; J3010 ×2; J1100; J2175 ×2; J2710; J0690 ×2; J7120 ×2; J2405; 81003; 81015

== ENCOUNTER 2024-12-02 11:00 | Emergency (ER) | payer BC, OTHER ==
--- OUTSIDE RECORDS SUMMARY | 2024-12-02 11:04 | XMS REPORT | Continuity of Care Document ---
Author Name Unknown Address [address] [place] [address] [address] [place] [address] [facility] [place] Address [address] [facility] [place] [place] [address] Care Team Providers Care Automobile Sales Representative Name Role Phone LAVELL ROLAND Attending Clinician Unavailable AARTI ROJO Attending Clinician Unavailable JENNY DE LA CRUZ Attending Clinician Unavailab GREGG Hatfield Attending Clinician Unavailable LAB90 Attending Clinician Unavailable SAMANTHA GUZMAN Attending Clinician Unava ilable [email or web address]_S Attending Clinician Unavaila Eugenio Fernandes MD Attending Clinician [phone] Rey Guy MD Attending Clinician [phone], [facility] Attending Clinician Unavailable [email or web address]_Kadiyala_S Admitting Clinician Unavailrebecca conway Payers Payer Name Policy Type Policy Number Effective Date Expirati on Date Source [facility] 2 [id number] 2023 00:00:00 Problems Condition Name Condition Details Condition Category Status Onset Date Resolution Date Last Treatment Date Treating Clinician Comments Source Unable to lose weight Unable to lose weight Disease Active 2023-07 00:00: 00 Magaly willson Well adult exam Well adult exam Disease Active 2023-07 00:00: 00 Magaly willson Insomnia Insomnia Disease Active 2023-07 00:00: 00 Magaly willson Class 3 severe obesity due to excess calories without serious comorbidit y with body mass index (BMI) of 40.0 to 44.9 in adult Class 3 severe obesity due to excess calories without serious comorbidit y with body mass index (BMI) of 40.0 to 44.9 in adult Disease Active 2023-07 00:00: 00 Maagly willson Need for pneumococc al vaccinatio n Need for pneumococc al vaccinatio n Disease Active 04-02 00:00: 00 [facility] Asymptomat ic bacteriuri a Asymptomat ic bacteriuri a Disease Active 04-02 00:00: 00 [facility] Pap smear for cervical cancer screening Pap smear for cervical cancer screening Disease Active 03-19 00:00: 00 [facility] Swelling of left lower extremity Swelling of left lower extremity Disease Active 03-19 00:00: 00 [facility] Swelling of right lower extremity Swelling of right lower extremity Disease Active 03-19 00:00: 00 [facility] Tobacco abuse counseling Tobacco abuse counseling Disease Active 03-19 00:00: 00 [facility] High dependence on smoking High dependence on smoking Disease Active 03-19 00:00: 00 [facility] Allergies, Adverse Reactions, Alerts Allergy Name Allergy Type Status Severity Reaction(s) Onset Date Inactive Date Treating Clinician Comments Source Morphine Propensi ty to adverse reaction s Active Hives 3-31 00:00: 00 Magaly willson Ciproflo xacin Propensi ty to adverse reaction s Active Other - See comments 03-19 00:00: 00 Chest pain [facility] Ciproflo xacin Hcl Propensi ty to adverse reaction s Active Shortness of Breath 03-15 00:00: 00 Magaly willson Social History Social Habit Start Date Stop Date Quantity Comments Source Gender identity Ruba Ratliff - External Sexual orientation K rosita Ratliff - External ASSERTION Not Magaly Ratliff - External History of tobacco use Cigarette Smoker Magaly barry - External Alcoholic beverage intake 2024-11-25 00:00:00 2024-11-25 00:00:00 Current drinker of alcohol (finding) Magaly Ratliff - External History of Social function 2023-04-17 00:00:00 2023-04-17 00:00:00 Mgaaly Ratliff - External Alcohol intake 2023-03-16 00:00:00 2023-03-16 00:00:00 Current drinker of alcohol (finding) Magaly Ratliff - External Alcohol Comment 2023-03-15 00:00:00 2023-03-15 00:00:00 daily, 25 ounce smirnoff ice drinks or glass or two of wine Magaly Ratliff - External Tobacco use and exposure 2023-03-15 00:00:00 2023-03-15 00:00:00 Smokeless tobacco non-user Magaly Ratliff - External Sex 2023-03-08 13:47:36 2023-03-08 13:47:36 Female (finding) Magaly Ratliff - External Sex assigned at 1980 00:00:00 1980 00:00:00 Magaly Ratliff - External Smoking Status Start Date Stop Date Source Unknown if ever smoked [facility] Ex-smoker 2023-03-15 00:00:00 2023-03-15 00:00:00 Saw rosita Ratliff - External Current every day smoker 2019-04-02 00:00:00 [facility] Medications Ordered Medication Name Filled Medication Name Start Date Stop Date Current Medication? Ordering Clinician Indication Dosage Frequency Signature (SIG) Comments Components Source DiphenhydrA MINE (Benadryl Allergy) 25 MG oral capsule 11-25 11:02: 47 11-25 00:00 :00 No 25mg Q.25D Take 1 capsule (25 mg total) by mouth every 6 hours as needed for itching 2 caps PO QHS. Magaly willson Melatonin 3 MG oral Tablet 11-25 10:44: 22 Yes 3{tbl} QD Take 3 tablets by mouth nightly. Magaly willson Amoxicillin -Pot Clavulanate 875-125 MG oral Tablet 11-25 00:00: 00 Yes [id number] 1{tbl} Q.5D Take 1 tablet by mouth 2 times daily. Magaly willson Phenol (Sore Throat [place]) 1.4 % mouth/throa t Liquid 2023-07 212 00:00: 00 11-25 00:00 :00 No [id number] 1{spray } Place 1 spray in the mouth or throat every 2 hours as needed for pain. Magaly willson Melatonin 3 MG oral Tablet 2023-07 16:27: 18 Yes 3{tbl} QD Take 3 tablets by mouth nightly. Magaly willson Semaglutide -Cruzito ght Management 0.25 MG/0.5ML Subcutaneou s Solution Auto-inject or 2023-07 00:00: 00 11-25 00:00 :00 No [id number] 104 .25mg Q1W Inject 0.25 mg into the skin once a week. Magaly willson Melatonin 3 MG oral Tablet 2023-07 16:25: 33 Yes 3{tbl} QD Take 3 tablets by mouth nightly. Magaly willson Pseudoeph-B romphen-DM 30-2-10 MG/5ML oral Syrup 02-14 00:00: 00 05-27 00:00 :00 No [id number] 10mL Q.25D Take 10 mL by mouth 4 times daily as needed. Magaly willson Azithromyci n 250 MG oral Tablet 02-14 00:00: 00 02-20 04:59 :00 No [id number] Take 2 tablets by mouth on day 1 then 1 tablet by mouth daily for 4 days thereafter .. Magaly willson Nitrofurant oin Monohyd Macro 100 MG oral Capsule 03-17 00:00: 00 02-14 00:00 :00 No [id number] 100mg Q.5D Take 1 capsule (100 mg total) by mouth 2 times daily Magaly willson buPROPion SR 150 mg SR tablet 04-02 00:00: 00 Yes [id number] 150mg Take 1 tablet by mouth 2 (two) times daily. [facility] buPROPion SR 150 mg SR tablet 03-19 00:00: 00 04-02 00:00 :00 No [id number] 150mg Take 1 tablet by mouth 2 (two) times daily. [facility] Vital Signs Vital Name Observation Time Observation Value Comments Brianne wiggins Systolic blood pressure 2024-11-25 15:40:00 126 mm[Hg] Magaly Seybo ld - External Diastolic blood pressure 2024-11-25 15:40:00 86 mm[Hg] Magaly Seybo ld - External Heart rate 2024-11-25 15:40:00 90 /min Kelse y Seybold - External Body temperature 2024-11-25 15:40:00 36.83 Kathie Magaly Seybold - External Respiratory rate 2024-11-25 15:40:00 20 /min Magaly Seybold - External Body height 2024-11-25 15:40:00 167.6 cm Ruba ey Seybold - External Body weight 2024-11-25 15:40:00 117.935 kg Ruba ey Seybold - External BMI 2024-11-25 15:40:00 41.97 kg/m2 Ruba ey Seybold - External Oxygen saturation in Arterial blood by Pulse oximetry 2024-11-25 15:40:00 96 /min Magaly Seybo ld - External Systolic blood pressure 2024-06-26 22:24:00 138 mm[Hg] Magaly Seybo ld - External Diastolic blood pressure 2024-06-26 22:24:00 80 mm[Hg] Magaly ybo ld - External Heart rate 2024-06-26 22:24:00 103 /min Kelse y Seybold - External Body temperature 2024-06-26 22:24:00 36.44 Kathie Magaly Seybold - External Respiratory rate 2024-06-26 22:24:00 16 /min Magaly Seybold - External Body height 2024-06-26 22:24:00 167.6 cm Ruba ey Seybold - External Body weight 2024-06-26 22:24:00 115.214 kg Ruba ey Seybold - External BMI 2024-06-26 22:24:00 41.00 kg/m2 Ruba ey Seybold - External Systolic blood pressure 2024-05-27 21:13:00 126 mm[Hg] Magaly Kenyonybo ld - External Diastolic blood pressure 2024-05-27 21:13:00 84 mm[Hg] aMgaly Kenyonybo ld - External Heart rate 2024-05-27 21:13:00 80 /min Gadielse y Seybold - External Body temperature 2024-05-27 21:13:00 36.72 Kathie Magaly Seybold - External Respiratory rate 2024-05-27 21:13:00 18 /min Magaly Seybold - External Body height 2024-05-27 21:13:00 167.6 cm Ruba ey Seybold - External Body weight 2024-05-27 21:13:00 112.946 kg Ruba ey Seybold - External BMI 2024-05-27 21:13:00 40.19 kg/m2 Ruba ey Seybold - External Oxygen saturation in Arterial blood by Pulse oximetry 2024-05-27 21:13:00 100 /min Magaly Ortegao ld - External Heart rate 2023-03-16 20:47:00 84 /min Jonathon matute Seybold - External Body temperature 2023-03-16 20:47:00 36.78 Kathie Magaly Seybold - External Respiratory rate 2023-03-16 20:47:00 15 /min Magaly Seybold - External Body height 2023-03-16 20:47:00 167.6 cm Ruba ey Seybold - External Body weight 2023-03-16 20:47:00 100.699 kg Ruba ey Seybold - External BMI 2023-03-16 20:47:00 35.83 kg/m2 Ruba ey Seybold - External Systolic blood pressure 2019-04-02 19:42:00 127 mm[Hg] [facility] Diastolic blood pressure 2019-04-02 19:42:00 85 mm[Hg] [facility] Heart rate 2019-04-02 19:42:00 78 /min [facility] Body temperature 2019-04-02 19:42:00 36.67 Kathie [facility] Respiratory rate 2019-04-02 19:42:00 16 /min [facility] Body height 2019-04-02 19:42:00 167.6 cm [facility] Body weight 2019-04-02 19:42:00 87.454 kg [facility] BMI 2019-04-02 19:42:00 31.12 kg/m2 [facility] Oxygen saturation in Arterial blood by Pulse oximetry 2019-04-02 19:42:00 100 /min [facility] Systolic blood pressure 2019-03-27 20:29:00 123 mm[Hg] [facility] Diastolic blood pressure 2019-03-27 20:29:00 79 mm[Hg] [facility] Heart rate 2019-03-27 20:29:00 88 /min [facility] Body temperature 2019-03-27 20:29:00 36.83 Kathie [facility] Respiratory rate 2019-03-27 20:29:00 18 /min [facility] Body height 2019-03-27 20:29:00 167.6 cm [facility] Body weight 2019-03-27 20:29:00 88.27 kg [facility] BMI 2019-03-27 20:29:00 31.41 kg/m2 [facility] Systolic blood pressure 2019-03-19 20:19:00 132 mm[Hg] [facility] Diastolic blood pressure 2019-03-19 20:19:00 79 mm[Hg] [facility] Heart rate 2019-03-19 20:19:00 76 /min [facility] Body temperature 2019-03-19 20:19:00 37 Kathie [facility] Respiratory rate 2019-03-19 20:19:00 20 /min [facility] Body weight 2019-03-19 20:19:00 88.451 kg [facility] Oxygen saturation in Arterial blood by Pulse oximetry 2019-03-19 20:19:00 97 /min [facility] Procedures Procedure Date / Time Performed Performing Clinician Source PNEUMOCOCCAL 13 (PREVNAR) VACCINE 2019-04-02 20:25:25 Eugenio Fitzpatrick [facility] POCT RAPID STREP SCREEN FOR GROUP A 2019-04-02 00:00:00 Eugenio Fitzpatrick [facility] CBC WITH DIFFERENTIAL 2019-03-19 21:24:00 Rafa Fitzpatrick [facility] Encounters Start Date/Time End Date/Time Encounter Type Admission Type Attending [facility] Care Department Encounter ID Source 2024-12-02 11:00:00 2024-12-02 11:00:00 Outpatient LAVELL ROLAND MAGALY POTTER [id number] [facility] 2024-12-02 00:00:00 2024-12-02 00:00:00 Outpatient ROLAND MONTE MAG[facility]Y [facility]OTTER [id number] [facility] 2024-11-25 11:00:00 2024-11-25 11:00:00 Outpatient AARTI ROJO [id number] [facility] 2024-07-18 16:30:00 2024-07-18 16:30:00 Outpatient JENNY DE LA CRUZ [id number] [facility] 2024-07-11 17:15:00 2024-07-11 17:15:00 Outpatient CHRISGIOVANYRIOJuancarlos POTTER [id number] [facility] 2024-07-06 00:00:00 2024-07-06 00:00:00 Outpatient JENNY DE LA CRUZ MAGALY POTTER [id number] [facility] 2024-06-26 16:30:00 2024-06-26 16:30:00 Outpatient AILYN DE LA CRUZA MAGALY POTTER [id number] [facility] 2024-05-30 00:00:00 2024-05-30 00:00:00 Outpatient JENNY DE LA CRUZ MAGALY OPTTER [id number] [facility] 2024-05-27 16:30:00 2024-05-27 16:30:00 Outpatient DOROTHYREZAJENNY MAGALY POTTER [id number] [facility] 2024-05-27 16:30:00 2024-05-27 16:30:00 Outpatient LAB90 MAGALY POTTER [id number] [facility] 2024-02-15 09:30:00 2024-02-15 09:30:00 Outpatient SAMANTHA GUZMAN [id number] Mag[facility] 2023-06-23 15:00:00 2023-06-23 15:00:00 Outpatient MAGALY MAGALY [id number] Magaly [facility] 2023-05-28 00:00:00 2023-05-28 00:00:00 Outpatient GC_GCBZW_Ka diyala_S [facility] [id number] [facility] 2023-05-17 00:00:00 2023-05-17 00:00:00 Outpatient JENNY DE LA CRUZ MAGALY [id number] Mag[facility] 2023-04-17 00:00:00 2023-04-17 00:00:00 Outpatient JENNY DE LA CRUZ MAGALY POTTER [id number] Mag[facility] 2023-04-07 16:20:00 2023-04-07 16:20:00 Outpatient LAB90 MAGALY MAGALY [id number] [facility] 2023-03-27 00:00:00 2023-03-27 00:00:00 Outpatient JENNY DE LA CRUZ MAGALY [id number] [facility] 2023-03-17 00:00:00 2023-03-17 00:00:00 Outpatient JENNY DE LA CRUZ MAGALY [id number] [facility] 2023-03-17 00:00:00 2023-03-17 00:00:00 Outpatient JENNY DE LA CRUZ MAGALY [id number] [facility] 2023-03-16 16:20:00 2023-03-16 16:20:00 Outpatient LAB90 MAGALY MAGALY [id number] [facility] 2023-03-16 15:30:00 2023-03-16 15:30:00 Outpatient JENNY DE LA CRUZ MAGALY POTTER [id number] [facility] 2019-04-02 13:50:50 2019-04-02 15:38:30 Office Visit Eugenio Fitzpatrick [facility] [id number] [facility] 2019-03-27 15:18:16 2019-03-27 16:12:00 Office Visit Rey Guy [facility] [id number] [facility] 2019-03-19 16:17:54 2019-03-19 16:32:54 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, [facility] 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 Eugenio Fitzpatrick [facility] [id number] [facility] 2019-03-19 14:55:05 2019-03-19 16:12:23 Office Visit Eugenio Fitzpatrick [facility] [id number] [facility] Results Test Description Test Time Test Comments Results Resul t Comments Source POCT RAPID STREP SCREEN FOR GROUP A 3 20:31:00 POCT GP A STREPComment: ordered cancelledNegative - Negative [facility] POCT RAPID STREP SCREEN FOR GROUP A 3 20:31:00 POCT GP A STREPComment: ordered cancelledNegative - Negative [facility] [id number] 22:26:00* Test Item Value Reference Range Interpretation Comme nts WBC (test code = 6690-2) See_Comment H [Automated messa ge] The system which generated this result transmitted reference range: 4.30 - 11.10 10*3/?L. The reference range was not used to interpret this result as normal/abnormal. RBC (test code = 789-8) See_Comment [Automated messa ge] The system which generated this result transmitted reference range: 3.93 - 5.25 10*6/?L. The reference range was not used to interpret this result as normal/abnormal. HGB (test code = 718-7) 14.4 g/dL 11.6-15 HCT (test code = 4544-3) 44.4 % 35.7-45.2 MCV (test code = 787-2) 98.4 fL 80.6-95.5 H MCH (test code = 785-6) 31.9 pg 25.9-32.8 MCHC (test code = 786-4) 32.4 g/dL 31.6-35.1 RDW-SD (test code = 06475-6) 49.8 fL 39-49.9 RDW-CV (test code = 788-0) 13.9 % 12-15.5 PLT (test code = 777-3) See_Comment [Automated 17u.cna ge] The system which generated this result transmitted reference range: 166 - 358 10*3/?L. The reference range was not used to interpret this result as normal/abnormal. MPV (test code = 64758-2) 10.4 fL 9.5-12.9 NRBC/100 WBC (test code = 5735003737) See_Comment [Automated [employer] ssage] The system which generated this result transmitted reference range: 0.0 - 10.0 /100 WBCs. The reference range was not used to interpret this result as normal/abnormal. NRBC x10^3 (test code = 2219808148) <0.01 See_Comment [Automated 17u.cna ge] The system which generated this result transmitted reference range: 10*3/?L. The reference range was not used to interpret this result as normal/abnormal. GRAN MAT (NEUT) % (test code = 770-8) 71.7 % IMM GRAN % (test code = 6072804208) 0.90 % LYMPH % (test code = 736-9) 18.9 % MONO % (test code = 5905-5) 6.9 % EOS % (test code = 713-8) 1.1 % BASO % (test code = 706-2) 0.5 % GRAN MAT x10^3(ANC) (test code = 3493854385) 9.37 10*3/uL 1.88-7.09 H IMM GRAN x10^3 (test code = 6954572796) 0.12 10*3/uL 0-0.06 H LYMPH x10^3 (test code = 731-0) 2.47 10*3/uL 1.32-3.29 MONO x10^3 (test code = 742-7) 0.90 10*3/uL 0.33-0.92 EOS x10^3 (test code = 711-2) 0.14 10*3/uL 0.03-0.39 BASO x10^3 (test code = 704-7) 0.07 10*3/uL 0.01-0.07 Lab Interpretation (test code = 86174-0) Abnormal [facility] Notes Date/Time Note Provider Source 2024-11-25 10:44:25 Chief Complaint Patient presents with Cough Sore Throat Sinus Problem Green mucus .Symptoms started on Monday Jazmyn Loco LVN [facility] 2024-06-26 16:27:19 Chief Complaint Patient presents with Follow-up Follow up on weight management Camila Brennan MA II RAM OR PROJECT ADMINISTRATOR Camila Brennan MA, II [facility] 2024-05-27 16:19:33 Chief Complaint Patient presents with Physical Fasting work labs Jazmyn Loco LVN [facility]
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
[2024-12-02 14:21] VITALS: TEMP 97.8; O2SAT 100
[2024-12-02 14:22] VITALS: BP 140/94
== END 2024-12-02 13:42 | disposition home or self-care (01) ==
LOC: ER 11:00
DX: M54.50 Low back pain, unspecified (principal); M79.602 Pain in left arm; V49.49XA Driver injured in collision with other motor vehicles in traffic accident, initial encounter
CPT/HCPCS: 71250; 74176; 99282